=== PATIENT | male | born 1995 | race Caucasian/White ===

== ENCOUNTER 2016-09-07 23:01 | Emergency (ER) | payer OTHER ==
[2016-09-07 23:09] VITALS: BP 115/69; PULSE 92; RESP 16; TEMP 98.2; O2SAT 94
--- NOTE | 2016-09-08 00:47 | EDPHY ---
H & P Time Seen by Provider: 09/08/16 00:00 HPI/ROS: HPI: 21-year-old male presents to emergency department with chief concern left 3rd finger laceration. Occurred 30 minutes prior to arrival when he punched a wall, lacerating the dorsal aspect of the distal left 3rd finger. Denies weakness, numbness, or tingling. Denies decreased range of motion. Up-to-date with tetanus. Left hand dominant ROS: Constitutional: No fever, chills Cardiovascular: No dusky, cool extremity GI: no nausea, vomiting Musculoskeletal: No decreased ROM or joint pain Neuro: No weakness, numbness, or tingling of extremities Skin: Laceration as noted above Past Medical/Surgical History: Concussion Social History: [employer] [facility] Smoking Status: Never smoked Physical Exam: Vital signs stable, reviewed by me General: Awake, alert, calm, cooperative. No acute distress. Head: Normalocephalic. Atraumatic. EENT: PERRLA. EOMI. CV: Distal pulses 2+ bilaterally. Brisk cap refill all extremities. Neuro: Alert. Oriented x 3. Speech clear. Sensation intact all extremities. Skin: Skin warm, dry. There is a 1.5 cm vertical flap laceration over the ulnar aspect of the dorsum of the left 3rd finger Musculoskeletal: Strength 5+ all extremities, specifically strength in intact to resistance of both dorsal and plantar flexion of the left 3rd finger at the DIPJ, full range of motion Constitutional: Initial Vital Signs Temperature (C) 36.8 C 09/07/16 23:06 Heart Rate 92 09/07/16 23:06 Respiratory Rate 16 09/07/16 23:06 Blood Pressure 115/69 09/07/16 23:06 O2 Sat (%) 94 09/07/16 23:06 O2 Delivery Mode Room Air Allergies/Adverse Reactions: No Known Allergies Allergy (Unverified 09/07/16 23:05) Home Medications: Medication Instructions Recorded Venlafaxine HCl [Venlafaxine 75MG 150 mg PO 07/18/16 (*)] Medical Decision Making - Diagnostics Imaging: X-ray negative for fracture. Final report pending at time this dictation Procedures: After verbal consent was obtained and risks and benefits explained, the laceration was anesthetized using a digital block for a total of 4 ml of 0.5% Marcaine. Lac then irrigated per protocol by equipment maint tech. Under sterile procedure, the wound was explored to its base with a gloved finger and no foreign body was identified. No deep structure identified. Wound was then draped and sterile procedure followed during laceration repair. Wound was repaired using # 4, 5-0 Prolene sutures. After repair, laceration cleansed, bacitracin and sterile dressing applied. Procedure performed by myself. Procedure was simple. Pt tolerated the procedure well. Differential Diagnosis: Laceration, fracture Departure - Departure Disposition: Home, Routine, Self-Care Clinical Impression: Finger laceration Qualifiers: Qualifier Code: (S61.219A) Laceration without foreign body of unspecified finger without damage to nail, initial encounter Condition: Good Instructions: Finger Laceration (ED) Additional Instructions: Plan: We saw you here today at the ED with a laceration of your finger. We closed the wound with for sutures. We'll have you leave the dressing on for 24 hours then remove it and begin cleaning the area daily by letting warm, soapy water run over it, but do not scrub or rub the site. Remove dried blood with a Q-tip dipped in water. Apply a thin layer of antibiotic ointment. Continue this routine daily. Recheck urgently if the area develops redness, swelling, increased pain, or red streaking above the wound, or if you develop a fever. Return to the emergency department in 7-10 days for suture removal. Return prior to then if any issues or concerns. Referrals: NONE *PRIMARY CARE P,. [Primary Care Provider] - As per Instructions [facility] [Outside] - As per Instructions
--- NOTE | 2016-09-08 08:15 | DX ---
Left third finger series 3 views 00 21 hours. History: Pain following trauma. Findings: The left third digit is intact without evidence of fracture. Joint spaces are normal. There is mild soft tissue swelling about the DIP joint. Impression: 1. No acute osseous abnormality is seen left third digit.
== END 2016-09-08 01:04 | disposition home or self-care (01) ==
PROC: 0HQGXZZ Repair Left Hand Skin, External Approach (ICD-10-PCS; principal; 2016-09-07)
DX: S61.213A Laceration without foreign body of left middle finger without damage to nail, initial encounter (principal); W22.8XXA Striking against or struck by other objects, initial encounter

== ENCOUNTER 2016-10-07 08:30 | Emergency (ER) | payer OTHER ==
[2016-10-07 08:35] VITALS: O2SAT 98
[2016-10-07] MEDS ORDERED: KETOROLAC 30 MG/1 ML SDV IVP ONE (09:43)
[2016-10-07] MEDS ORDERED: NS 1,000 ML IV ONE (09:43)
[2016-10-07] MEDS ORDERED: DEXAMETHASONE 10 MG/ML VIAL IVP ONE (09:43)
--- NOTE | 2016-10-07 09:47 | EDPHY ---
H & P Time Seen by Provider: 10/07/16 08:51 HPI/ROS: HPI Sore throat. 21-year-old male by private vehicle. This patient reports that he woke up this morning with a sore throat and a sensation of uvular swelling. No ill contacts. He states he is able to swallow liquids but his pain is worse with swallowing activity. He denies fever. No voice changes. No stridor. ROS: Constitutional: No fever, no chills. No weakness. Eyes: No discharge. No changes in vision. ENT: As above. No nasal congestion or rhinorrhea. Respiratory: No cough. No shortness of breath. Cardiac: No chest pain, no palpitations. Gastrointestinal: No abdominal pain, no vomiting, no diarrhea. Genitourinary: No hematuria. No dysuria or increased frequency with urination. Musculoskeletal: No back pain. No neck pain. No myalgias or arthralgias. Skin: No rashes. Neurological: No headache. No focal weakness or altered sensation. Past medical history: Depression. Social history: [employer]. Nonsmoker. Physical Exam: General Appearance: Alert, no distress. This patient is responding to questions appropriately and in full sentences. This patient appears well- hydrated and well-nourished. Eyes: Pupils equal and round no pallor or injection. No lid edema, erythema or injection. ENT, Mouth: Mucous membranes are moist. Pharyngeal erythema but without exudates. No asymmetry suggestive of abscess has. Uvular edema noted. No stridor on auscultation of his neck. No cervical, submandibular, submental lymphadenopathy. Respiratory: There are no retractions, lungs are clear to auscultation with good air movement bilaterally. Cardiovascular: Regular rate and rhythm. No murmur. Neurological: Motor sensory function is grossly intact. Cranial nerves are normal. Gait is normal. Skin: Warm and dry, no rashes. Musculoskeletal: Neck is supple and nontender. Extremities are symmetrical. All joints range without pain or impingement. Psychiatric: No agitation. No depression. Database: Rapid strep-negative. EKG: Imaging: Procedures: Emergency department course: IV placed. He was started on IV normal saline with 1 L to be given over the next hour. He was given 30 mg of IV Toradol and 10 mg of IV Decadron. He does not have a contraindication NSAIDs and has not had any kidney problems. His vital signs have been reviewed and are normal. 10:15 a.m., patient re-evaluated. Resting comfortably at this time. He states that his pain has improved. Repeat pharyngeal exam he has decreased in his uvular edema. No stridor on auscultation of his neck. No voice changes. He feels comfortable going home and I feel he is safe for discharge. Follow-up and return to emergency department precautions have been thoroughly reviewed with him. All of his questions were answered. He was discharged in good condition. Differential Diagnosis: The differential diagnosis on this patient includes but is not limited to viral pharyngitis, mononucleosis. Streptococcal pharyngitis, serious bacterial infection, retropharyngeal abscess, peritonsillar abscess, tracheitis, epiglottitis unlikely. This represents a partial list of diagnoses considered. These considerations are based on history, physical exam, past history, reassessment and diagnostic testing. Smoking Status: Never smoked Constitutional: Initial Vital Signs Temperature (C) 36.5 C 10/07/16 08:33 Heart Rate 62 10/07/16 08:33 Respiratory Rate 18 10/07/16 08:33 Blood Pressure 123/89 H 10/07/16 08:33 O2 Sat (%) 98 10/07/16 08:33 O2 Delivery Mode Room Air Allergies/Adverse Reactions: No Known Allergies Allergy (Verified 10/07/16 08:31) Home Medications: Medication Instructions Recorded Venlafaxine HCl [Venlafaxine 75MG 150 mg PO 07/18/16 (*)] Dexamethasone [Decadron] 8 mg PO DAILY #4 tab 10/07/16 Hydrocodone/APAP 5/325 [[place] 1 - 2 tab PO Q4-6PRN PRN #10 tab 10/07/16 5/325 (*)] Medical Decision Making - Data Points Laboratory Results: 10/07/16 10/07/16 Unknown 09:06 Group A Strep Screen NEGATIVE (NEGATIVE) Group A Strep DNA Pending Departure - Departure Disposition: Home, Routine, Self-Care Clinical Impression: Acute pharyngitis Condition: Good Instructions: Pharyngitis (ED) Additional Instructions: Read and follow provided instructions. Follow-up with your primary care physician for re-evaluation at [facility] tomorrow. Ibuprofen dosin mg every 6 hours with meals for the next 3 days only. Start taking ibuprofen tonight. [place]/Percocet dosin-2 every 4-[address] not drive on this medication. Return to the emergency department for pain, voice changes, or other serious concerns. Referrals: NONE *PRIMARY CARE P,. [Primary Care Provider] - As per Instructions Prescriptions: Dexamethasone [Decadron] 8 mg PO DAILY #4 tab Hydrocodone/APAP 5/325 [[place] 5/325 (*)] 1 - 2 tab PO Q4-6PRN PRN #10 tab PRN Reason: Pain, Moderate
[2016-10-07 10:27] VITALS: BP 118/74; PULSE 76; RESP 16; TEMP 97.9
== END 2016-10-07 10:27 | disposition home or self-care (01) ==
DX: J02.9 Acute pharyngitis, unspecified (principal)
CPT/HCPCS: 96374; J1885

== ENCOUNTER 2016-11-22 12:41 | Emergency (ER) | payer OTHER ==
--- NOTE | 2016-11-22 13:07 | EDPHY ---
HPI/HX/ROS/PE/MDM Narrative: CHIEF COMPLAINT: Fever, myalgias HPI: The patient is a 21 y/o male arriving with his mother complaining of headache, fever, and myalgias for the last 3 days. He reports he initially developed a headache and subjective fever. He then developed a cough, myalgias, and bilateral ear pain that have worsened in severity today. He denies abdominal pain, vomiting, or diarrhea. He has been using Tylenol for symptoms with some improvement. He did not receive a flu vaccination this season. He denies pertinent medical history. REVIEW OF SYSTEMS: Aside from elements discussed in the HPI, a comprehensive 10-point review of systems was reviewed and is negative. PMH: Depression SOCIAL HISTORY: [employer] student. Nonsmoker. Prior medical records reviewed including ED visit 10/07/16 for sore throat. PHYSICAL EXAM: General:Patient is alert, in no acute distress. Well appearing. ENT:Eyes are normal to inspection. ENT inspection normal. Neck: Normal inspection. Full range of motion. No meningismus Respiratory:No respiratory distress. Breath sounds normal bilaterally. Cardiovascular: Regular rate and rhythm. Strong peripheral pulses. Normal cap refill. Abdomen:The abdomen is nontender to palpation. There are no peritoneal signs. Back: Normal to inspection. No tenderness to palpation. Skin: Normal color. No rash. Warm and dry. Extremities: Normal appearance. Full range of motion. Neuro: Oriented x3. Normal motor function. Normal sensory function. ED Course: This is a 21 y/o male presenting with a 3-day history of headache, subjective fever, and myalgias. Exam in unremarkable. TMs are clear, lungs are clear. Plan for flu swab. Swab positive for flu B. Reassessed patient and discussed results. He continues to complain of myalgias. 30mg IM Toradol administered prior to discharge. We discussed care instructions for viral illnesses. He requested Tamiflu prescription despite our conversation that it is generally ineffective over 48 hours after symptoms have appeared. He will be discharged with referral to PCP and Tylenol/ibuprofen instructions. He is comfortable with this plan. MDM: This is a young healthy male with signs and symptoms consistent with influenza. I see no signs of pneumonia, otitis or meningitis. I explained to the patient that Tamiflu is indicated only within 48 hours of symptom onset. He now states that maybe symptoms started later than he initially mentioned. I also offered to write prophylaxis for his parents who have been taking care of him over the last few days. We discussed strict return precautions. - Data Points Laboratory Results: 11/22/16 13:35 Influenza Typ A,B (DFA) POSITIVE FOR FLU B H (NEGATIVE) General Time Seen by Provider: 11/22/16 12:56 Initial Vital Signs: Initial Vital Signs Temperature (C) 36.8 C 11/22/16 12:44 Heart Rate 92 11/22/16 12:44 Respiratory Rate 20 11/22/16 12:44 Blood Pressure 122/79 H 11/22/16 12:44 O2 Sat (%) 95 11/22/16 12:44 O2 Delivery Mode Room Air Allergies/Adverse Reactions: No Known Allergies Allergy (Verified 11/22/16 12:44) Home Medications: Medication Instructions Recorded Venlafaxine HCl [Venlafaxine 75MG 150 mg PO 07/18/16 (*)] Oseltamivir Phosphate [Tamiflu 75 75 mg PO BID 5 Days 11/22/16 mg (RX)] Departure - Departure Disposition: Home, Routine, Self-Care Clinical Impression: Influenza B Condition: Good Instructions: Influenza (ED) Additional Instructions: 1. Use Tylenol and ibuprofen for pain and fever as needed for symptoms over the next 3-5 days. See instructions below. 2. Increase fluid intake. Rest. 3. Follow up with your primary care provider for symptoms not improved in 1-2 weeks. 4. Tamiflu is not likely to be effective after the first 48 hour of symptoms. It can be used prophylactically for those in contact with you including your mother and father. 5. I recommend getting a flu vaccination every season to decrease your chance of becoming ill with influenza. Adult Pain & Fever Control: We recommend Acetaminophen (Tylenol) and Ibuprofen (Motrin,Advil) for pain and fever control. When fever is high or pain severe, both drugs can be used at the same time, but at different intervals. Please note the time differences. Your dose is: Acetaminophen 650mg every 4 to 6 hours Ibuprofen 600mg every 6-8 hours with food Note: do not take Acetaminophen with Hydrocodone (Vicodin, Lortab) or Oxycodone (Percocet). These medications also contain Acetaminophen. No more than 3000mg of Acetaminophen should be taken in 24 hours (for an adult). Referrals: NONE *PRIMARY CARE P,. [Primary Care Provider] - As per Instructions [facility] [Cl[facility]] - As per Instructions Prescriptions: Oseltamivir Phosphate [Tamiflu 75 mg (RX)] 75 mg PO BID 5 Days Report Scribed for: Donald Browne Report Scribed by: Karin Drake Date of Report: 11/22/16 Time of Report: 12:58 Physician Review and Approval Statement: Portions of this note were transcribed by an ED scribe. I personally performed the history, physical exam, and medical decision making; and confirm the accuracy of the information in the transcribed note.
[2016-11-22] MEDS ORDERED: KETOROLAC 30 MG/1 ML SDV IM ONE (14:22)
[2016-11-22 14:40] VITALS: BP 95/63; PULSE 94; RESP 18; TEMP 101.7; O2SAT 96
== END 2016-11-22 14:45 | disposition home or self-care (01) ==
DX: J10.1 Influenza due to other identified influenza virus with other respiratory manifestations (principal)
CPT/HCPCS: J1885